=== PATIENT | female | born 1985 | race Two or more races ===

== ENCOUNTER 2018-09-26 21:12 | Emergency (ER) | payer OTHER ==
[~2018-09-26] VITALS: Ht 172.7 cm; Wt 95.3 kg
--- NOTE | 2018-09-26 21:30 | NUR ---
URINE COLLECTED AND SENT TO LAB
--- NOTE | 2018-09-26 21:30 | NUR ---
BIBSELF C/O DYSURIA X1WEEK. +URGENCY, +FREQ, -HEMATURIA, -FLANK PAIN. PREVIOUS HX OF UTI'S. PT IS AOX4, VSS, RESPIRATIONS EVEN AND UNLABORED. NO ACUTE DISTRESS NOTED. SKIN WARM TO TOUCH, DRY, INTACT. DENIES SOB, DIZZINESS, WEAKNESS, N/V/D. READY FOR EVAL. WILL CONT TO MONITOR.
--- NOTE | 2018-09-26 22:15 | NUR ---
PT STEPPED OUT TO SMOKE
--- NOTE | 2018-09-26 22:36 | NUR ---
Patient discharged to home in stable condition. Written and verbal after care instructions given. Patient verbalizes understanding of instruction.
[2018-09-26 22:57] VITALS: BP 135/84
== END 2018-09-26 22:36 | disposition home or self-care (01) ==
LOC: ER 21:22
DX: N39.0 Urinary tract infection, site not specified (principal)
CPT/HCPCS: 84703-TC; 87086-TC; A4606; Z7610